=== PATIENT | male | born 1980 | race Caucasian/White ===

== ENCOUNTER → 2023-08-07 16:06 | Outpatient (REF) | payer OTHER, SELFPAY | LOC: RAD 16:06 | PROVIDERS: ATTENDING PHYSICIAN Nurse Practitioner Family; FAMILY PHYSICIAN Emergency Medicine | DX: R07.81 Pleurodynia (principal); M89.8X1 Other specified disorders of bone, shoulder | CPT/HCPCS: 71101; 73010 ==

== ENCOUNTER → 2025-01-28 12:00 | Outpatient (REF) | payer OTHER, SELFPAY | LOC: DHSLP 12:00 | PROVIDERS: ATTENDING PHYSICIAN Student in an Organized Health Care Education/Training Program; FAMILY PHYSICIAN Nurse Practitioner Family | DX: G47.33 Obstructive sleep apnea (adult) (pediatric) (principal); R06.83 Snoring | CPT/HCPCS: 95800 ==

== ENCOUNTER 2025-03-02 06:30 | Day surgery (SDC) | payer OTHER, SELFPAY ==
[2025-03-02] VITALS (7 sets, daily range): BP systolic 119–139; BP diastolic 78–88; BMI 30.5
[2025-03-02] MEDS: NORMOSOL-R/PLASMALYTE-A 1000 IV (13:45)
--- NOTE | 2025-03-02 18:30 | OR.RPT ---
Operative Report
Operative Report
Patient name: Gonzales Muro
Date of : 1980

Date of procedure: 03/02/2025
Preoperative diagnosis: Nasal obstruction, deviated nasal septum, hypertrophy of nasal turbinates
Postoperative diagnosis: Same
Procedure performed: Septoplasty, submucous resection inferior turbinates
Surgeon: Paul Marie DO
Anesthesiologist: Dr. Mason
Anesthesia: General, ETT
Surgical indications: Gonzales is a 44-year-old man who presents to the otolaryngology department with a chief complaint of nasal obstruction, bothersome snoring and difficulty breathing through his nose. He underwent a home sleep study to evaluate
for presence of sleep apnea which was negative, supporting the notion that his snoring was related to nasal obstruction with no further clinical significance. He was tried on nasal saline sprays and intranasal corticosteroids and antihistamines
without relief of symptoms. We discussed options for further management which included septoplasty and turbinate reduction versus conventional medical therapy. After careful deliberation and discussion of the risks and benefits of surgery, he
elected to proceed with septoplasty and inferior turbinate reduction.
Details of procedure: The patient was met in the preoperative holding area where all questions were answered and informed written consent was reviewed. He was then taken back to the operating room and transferred supine on the operating table. A
safety strap was placed. The anesthesia team induced general anesthesia and he was intubated orotracheally without difficulty. Next topical 4% cocaine soaked pledgets were placed in the nasal cavities for vasoconstriction and topical anesthesia.
A surgical timeout was performed confirming the necessary perioperative information. The nasal cavities were then inspected. There was a large right anterior and mid septal spur contacting the right inferior turbinate. There was a mild left
septal deviation. There was bilateral inferior turbinate hypertrophy. Once the equipment was set up, 1% lidocaine with epinephrine 1 100,000 was used to infiltrate the bilateral nasal cavities, nasal septum and turbinates. A total of 15 cc was
used. After adequate time for anesthesia, a #15 blade was used to make a small stab incision in the anterior head of each inferior turbinate. A Shell elevator was used to gently create a submucous pocket along the length of each inferior
turbinate. A microdebrider handpiece with a turbinate blade was used to perform submucous resection along the length of the inferior turbinates. Next outfracture was performed using a Yoder elevator. This improved the caliber and patency of the
nasal airway. The cocaine soaked pledgets were replaced in the nasal cavities for a brief time and then removed on the left. Next a left hemitransfixion incision was fashioned using a #15 blade and this was taken down through the mucosa and
submucosa and mucoperichondrium. Once the septal cartilage was visualized, the tip of the 15 blade and an iris scissor and a Blanco elevator were used to establish a submucoperichondrial pocket. A Shell elevator was then used to enlarge this
pocket and elevate a submucoperichondrial flap from anterior to posterior and superior to inferior along the left side of the nasal septum. Once well past the bony cartilaginous junction, and #15 blade was used to create a trans cartilaginous
incision, and a Blanco elevator was used to elevate a contralateral submucoperichondrial pocket. Once the cartilaginous and bony components of the septum were isolated, a deviated window of cartilaginous septum was removed using a dorsal scissor
and a Blanco elevator. This allowed improved exposure to the large right septal spur and deviated maxillary crest. A Blanco elevator was used to carefully dissected above and below the spur on the right before dissecting along its apex. Once the
spur and maxillary crest were isolated from the mucoperichondrial flap, a 4 mm osteotome and chisel were used to resect the deviated portion of maxillary crest. Additional deviated fragments were removed with a Sushila forcep. The flap was laid
back down and the nasal cavities were inspected. The nasopharynx could be visualized on anterior rhinoscopy at this point. A Bovie suction monopolar cautery on a setting of 25 coag was used to obtain hemostasis from the maxillary crest after
resection of the deviated segments. Next the left hemitransfixion incision was closed using a 4-0 chromic stitch in a simple interrupted fashion. A quilting suture was then performed using a 4-0 plain gut stitch on a Anton needle in a quilting
fashion. Hemostasis was confirmed. Alarcon silicone splints coated in bacitracin with the inner tubes trimmed were then placed in the bilateral nasal cavities and sewn in place using a 2-0 silk in a transseptal fashion. This concluded the procedure
and the patient tolerated well.
Specimens: Septal contents
Complications: None immediately present
Estimated blood loss: 5 cc
Disposition: Stable to PACU followed by discharge to home
== END 2025-03-02 19:42 | disposition home or self-care (01) ==
LOC: SDS 06:30
PROVIDERS: ATTENDING PHYSICIAN Student in an Organized Health Care Education/Training Program
DX: J34.89 Other specified disorders of nose and nasal sinuses (principal); J34.2 Deviated nasal septum; J34.3 Hypertrophy of nasal turbinates
CPT/HCPCS: 30140; 30520; 88300